=== PATIENT | female | born 1955 | race Caucasian/White ===

== ENCOUNTER 2017-10-20 16:46 | Emergency (ER) | payer SELFPAY ==
[~2017-10-20] VITALS: Ht 160 cm; Wt 72.6 kg
--- NOTE | 2017-10-20 16:58 | NUR ---
PATIENT TO ED DT GLF. NO KO REPORTED. PATIENT IS NOTED WITH NOSE BRIDGE ABRASION AND LEFT KNEE PAIN. PATIENT IS AWAKE AND ALERT. NOT IN DISTRESS. RESPIRATION EVEN AND UNLABORED. SKIN IS WARM TO TOUCH AND NON DIAPHORETIC. AFBRILE. VSS
--- NOTE | 2017-10-20 17:00 | NUR ---
MD FONTANA T BEDSIDE
[2017-10-20 18:48] VITALS: BP 136/70
== END 2017-10-20 18:50 | disposition home or self-care (01) ==
LOC: ER 16:49
DX: S62.346A Nondisplaced fracture of base of fifth metacarpal bone, right hand, initial encounter for closed fracture (principal); S80.02XA Contusion of left knee, initial encounter; S00.33XA Contusion of nose, initial encounter; I10 Essential (primary) hypertension; K21.9 Gastro-esophageal reflux disease without esophagitis; E11.9 Type 2 diabetes mellitus without complications; M19.90 Unspecified osteoarthritis, unspecified site; Z85.038 Personal history of other malignant neoplasm of large intestine; Z98.890 Other specified postprocedural states; W18.39XA Other fall on same level, initial encounter; Y93.89 Activity, other specified; Y92.89 Other specified places as the place of occurrence of the external cause; Y99.0 Civilian activity done for income or pay
CPT/HCPCS: 70486-TC; 73130-TC; 73562; A4606; Z7610